=== PATIENT | female | born 2000 | race Caucasian/White ===

== ENCOUNTER 2023-07-29 09:51 | Outpatient (REF) | payer BC, SELFPAY ==
--- NOTE | ~2023-07-29 | US_ITS ---
EXAM: Pelvic Ultrasound CLINICAL INDICATION: Irregular bleeding. IUD check. COMPARISON: None available TECHNIQUE: The pelvis was evaluated using transabdominal and transvaginal imaging. FINDINGS: The uterus measures 7.4 x 3.1 x 5.3 cm in longitudinal by AP by transverse dimension. The endometrial stripe is not thickened and measures 0.5 cm. IUD appears properly positioned within the endometrium. The left ovary measures approximately 1.7 x 1.6 x 1.3 cm and is normal. The right ovary measures approximately 1.7 x 2.0 x 2.5 cm and contains a 2 cm simple appearing cyst versus dominant follicle. There is no free fluid in the pelvis. US/US pelvic and transvaginal IMPRESSION: 1. IUD in expected orientation. 2. Normal thickness endometrial stripe. 3. 2 cm simple appearing right ovarian cyst versus dominant follicle.
== END 2023-07-29 09:52 | disposition home or self-care (01) ==
LOC: HO.UMASIMG 09:51
PROVIDERS: Visit Provider Nurse Practitioner Women's Health
DX: Z30.431 Encounter for routine checking of intrauterine contraceptive device (principal)
CPT/HCPCS: 76830; 76856